=== PATIENT | female | born 2000 | race Caucasian/White ===

== ENCOUNTER 2021-07-15 23:04 | Emergency (ER) | payer OTHER ==
[~2021-07-15] VITALS: Ht 162.6 cm; Wt 67.3 kg
[2021-07-15 23:30] LABS: BASO % 0.3 % (0.0-2.0); EOS % 0.1 % (0.0-4.0); GRAN # 5.7 K/mm3 (1.4-6.5); GRAN % 76.7 % (42.2-75.2); HEMATOCRIT 41.5 % (35.0-45.0); HEMOGLOBIN 14.1 g/dl (12.0-15.0); LYMPH % 13.5 % (20.0-51.0); MEAN CELL VOLUME 93 fl (80.0-95.0); MEAN CORPUSCULAR HEMOGLOBIN 32 pg (26-32); MEAN CORPUSCULAR HGB CONC 34 g/dl (33.0-37.0); MEAN PLATELET VOLUME 10.7 fl (7.4-10.4); MONO # 0.7 K/mm3 (0.1-0.6); MONO % 9.1 % (1.7-9.3); PLATELET COUNT 222 K/mm3 (130-400); RED BLOOD COUNT 4.45 M/mm3 (4.10-5.30); REDCELL DISTRIBUTION WIDTH-CV 12.4 % (11.5-14.5)
[2021-07-15 23:44] LABS: ALBUMIN 4.2 gm/dL (3.5-5.0); BILIRUBIN,TOTAL 0.5 mg/dL (0.2-1.2); CALCIUM 9.3 mg/dL (8.4-10.2); CREATININE, serum 1.09 mg/dL (0.57-1.11); TOTAL PROTEIN 7.4 gm/dL (6.2-8.1)
[2021-07-15 23:57] LABS: C-REACTIVE PROTEIN 8.19 mg/dL (0.00-0.50)
[2021-07-16 01:13] VITALS: TEMP 100.1
[2021-07-16 02:03] LABS: COLLECTION METHOD CLEAN CATCH
[2021-07-16] MEDS ORDERED: ZOFRAN ODT4 MG PO (02:03)
[2021-07-16] MEDS ORDERED: ZITHROMAX500 M2 PO (02:03)
[2021-07-16 02:08] LABS: MUCOUS Present (NOT PRESENT); PH 6 (5-8); SQUAMOUS EPITHELIAL 0-2 /hpf (0-10); URINE APPEARANCE Clear (CLEAR/HAZY); URINE BACTERIA None Seen /hpf (NONE SEEN); URINE BILIRUBIN Negative (NEGATIVE); URINE BLOOD 1+ (NEGATIVE); URINE COLOR Yellow (YELLOW); URINE GLUCOSE Negative (NEGATIVE); URINE KETONE 1+ (NEGATIVE); URINE LEUKOCYTE ESTERASE Negative (NEGATIVE); URINE NITRATE Negative (NEGATIVE); URINE PROTEIN(semi-quant) Negative (NEGATIVE); URINE UROBILINOGEN Negative (NEGATIVE)
[2021-07-16 02:17] VITALS: BP 114/78; PULSE 76
== END 2021-07-16 02:17 | disposition home or self-care (01) ==
LOC: COL.ER 23:04
PROVIDERS: Nurse Practitioner Primary Care; Student in an Organized Health Care Education/Training Program
DX: R50.9 Fever, unspecified (principal); R19.7 Diarrhea, unspecified; Z28.310 Unvaccinated for COVID-19
CPT/HCPCS: J1885; J2405; J7030; Q9967